=== PATIENT | male | born 2000 | race Native Hawaiian/Other Pacific Islander ===

== ENCOUNTER 2020-12-25 12:39 | Emergency (ER) | payer SELFPAY ==
[2020-12-25] MEDS ORDERED: TETANUS,DIPH,PERTUSS(ACELL) VACCINE 0.5 ML SYRINGE IM ONE (13:09)
[2020-12-25 13:15] VITALS: BP 125/68
--- NOTE | 2020-12-25 13:15 | Emergency Department Report ---
ED Extremity Problem HPI - General Stated complaint: FINGER INJURY Time Seen by Provider: 12/25/20 13:09 Source: patient, RN notes reviewed Limitations: No Limitations - History of Present Illness Initial comments: Is a 20-year-old male who presents the emergency department with a chief complaint of a crush injury to the tip of his right fourth finger. He was seen at a clinic and referred to the ER. He denies any other injuries. Reports pain is a 4-10 aggravated with any movement. He denies any associated fevers, chills, night sweats, headache, dizziness, blurry vision, nausea, vomiting, diarrhea, chest pain, shortness of breath, weakness or any other associated symptoms. - Related Data Previous Rx's Medication Instructions Recorded Last Taken Type Naproxen [EC-Naprosyn] 500 mg PO BID #20 tablet. 12/25/20 Unknown Rx Allergies Allergy/AdvReac Type Severity Reaction Status Date / Time No Known Allergies Allergy Unverified 12/25/20 13:15 ED Review of Systems ROS: Stated complaint: FINGER INJURY Other details as noted in HPI Comment: All other systems reviewed and negative Constitutional: denies: chills, fever Eyes: denies: eye pain, eye discharge, vision change ENT: denies: ear pain, throat pain Respiratory: denies: cough, shortness of breath, wheezing Cardiovascular: denies: chest pain, palpitations Endocrine: no symptoms reported Gastrointestinal: denies: abdominal pain, nausea, diarrhea Genitourinary: denies: urgency, dysuria Musculoskeletal: as per HPI. denies: back pain, joint swelling, arthralgia Skin: denies: rash, lesions Neurological: denies: headache, weakness, paresthesias Psychiatric: denies: anxiety, depression Hematological/Lymphatic: denies: easy bleeding, easy bruising ED Past Medical Hx - Past Medical History Previous Medical History?: No - Surgical History Past Surgical History?: No - Family History Family history: no significant - Social History Smoking Status: Never Smoker Substance Use Type: None - Medications Home Medications: Home Medications Medication Instructions Recorded Confirmed Last Taken Type Naproxen [EC-Naprosyn] 500 mg PO BID #20 tablet. 12/25/20 Unknown Rx ED Physical Exam - General General appearance: alert, in no apparent distress - Head Head exam: Present: atraumatic, normocephalic - Eye Eye exam: Present: normal appearance, PERRL, EOMI Pupils: Present: normal accommodation - ENT ENT exam: Present: normal exam, normal orophraynx, mucous membranes moist - Neck Neck exam: Present: normal inspection, full ROM. Absent: tenderness, meningismus - Respiratory Respiratory exam: Present: normal lung sounds bilaterally. Absent: respiratory distress, wheezes, rales, rhonchi, stridor - Cardiovascular Cardiovascular Exam: Present: regular rate, normal rhythm, normal heart sounds. Absent: systolic murmur, diastolic murmur, rubs, gallop - GI/Abdominal GI/Abdominal exam: Present: soft, normal bowel sounds. Absent: distended, tenderness, guarding, rebound, rigid - Rectal Rectal exam: Present: deferred - Extremities Exam Extremities exam: Present: full ROM, tenderness (Tenderness to palpation over the right fourth digit on the dorsal aspect overlying the DIP joint. Full active range of motion of the DIP, PIP and MCP joint. Normal distal sensation and capillary refill. No active bleeding. No obvious deformity.) - Back Exam Back exam: Present: normal inspection, full ROM. Absent: tenderness, CVA tenderness (R), CVA tenderness (L) - Neurological Exam Neurological exam: Present: alert, oriented X3, normal gait - Psychiatric Psychiatric exam: Present: normal affect, normal mood - Skin Skin exam: Present: warm, dry, intact, normal color. Absent: rash ED Course Vital Signs 12/25/20 13:12 Temperature 98.2 F Pulse Rate 68 Respiratory 20 Rate Blood Pressure 125/68 O2 Sat by Pulse 100 Oximetry ED Medical Decision Making - Radiology Data Radiology results: image reviewed No acute fracture or dislocation. No acute findings. - Medical Decision Making X-ray of the finger showed no acute findings. The patient a small abrasion with normal active range of motion. Tetanus was updated and patient be discharged in stable condition with outpatient follow-up with primary care. He was instructed return to the ER if he develops any change or worsening symptoms. He verbalized understanding of the diagnosis, treatment plan and follow-up instructions all his questions were answered. Wound was cleaned and a sterile bandage was applied. - Differential Diagnosis Abrasion, laceration, fracture Critical care attestation.: If time is entered above; I have spent that time in minutes in the direct care of this critically ill patient, excluding procedure time. ED Disposition Clinical Impression: Finger abrasion Qualifiers: Encounter type: initial encounter Qualified Code(s): S60.419A - Abrasion of unspecified finger, initial encounter Finger contusion Qualifiers: Encounter type: initial encounter Finger: ring finger Damage to nail status: without damage Laterality: right Qualified Code(s): S60.041A - Contusion of right ring finger without damage to nail, initial encounter Disposition: - TO HOME OR SELFCARE Is pt being admited?: No Condition: Stable Instructions: Contusion, Agdh-ow-Nhus, Abrasion Prescriptions: Naproxen [EC-Naprosyn] 500 mg PO BID #20 tablet.dr Referrals: HUI PINA MD [Staff Physician] - 3-5 Days [facility] [place] [Provider Group] - 3-5 Days Time of Disposition: 13:40
--- NOTE | 2020-12-25 13:50 | XRay Report ---
RIGHT RING FINGER 3 VIEWS 1321 INDICATION: crush injury right 4th digit COMPARISON: None available. FINDINGS: No fractures or dislocations are seen. Signer Name: Tremaine Guerra MD Signed: 12/25/2020 1:45 PM Workstation Name: [id number]
== END 2020-12-25 14:39 | disposition home or self-care (01) ==
LOC: ED 12:39
DX: S60.041A Contusion of right ring finger without damage to nail, initial encounter (principal); Z79.899 Other long term (current) drug therapy; X58.XXXA Exposure to other specified factors, initial encounter; Y93.89 Activity, other specified; Y92.89 Other specified places as the place of occurrence of the external cause; Y99.8 Other external cause status
CPT/HCPCS: 90471; 90715